=== PATIENT | male | born 1990 | race Caucasian/White ===

== ENCOUNTER 2018-02-01 03:06 | Emergency (ER) | payer OTHER ==
[~2018-02-01] VITALS: Ht 177.8 cm; Wt 59.0 kg
[2018-02-01 03:14] VITALS: Ht 177.8 cm; Wt 59.0 kg
[2018-02-01 08:53] VITALS: BP 126/67
== END 2018-02-01 08:53 | disposition home or self-care (01) ==
LOC: ED 03:06
DX: S01.01XA Laceration without foreign body of scalp, initial encounter (principal); W45.8XXA Other foreign body or object entering through skin, initial encounter; Y93.89 Activity, other specified; Y92.89 Other specified places as the place of occurrence of the external cause; Y99.8 Other external cause status
CPT/HCPCS: 90715; J2001

== ENCOUNTER 2018-02-10 13:04 | Emergency (ER) | payer OTHER ==
[~2018-02-10] VITALS: Ht 177.8 cm; Wt 59.9 kg
[2018-02-10 13:25] VITALS: Ht 177.8 cm; Wt 59.9 kg
[2018-02-10 14:13] VITALS: BP 147/72
== END 2018-02-10 14:13 | disposition home or self-care (01) ==
LOC: ED 13:04
DX: Z48.02 Encounter for removal of sutures (principal)